=== PATIENT | male | born 1960 | race Caucasian/White ===

== ENCOUNTER 2021-03-14 15:13 | Outpatient (REF) | payer OTHER, SELFPAY ==
[2021-03-14 16:48] LABS: Erythrocyte Sedimentation Rate 5 MM/HR (0-15)
[2021-03-14 16:49] LABS: Syphilis Screen Nonreactive (Nonreactive)
[2021-03-15 09:22] LABS: Lyme Abs Screen <0.90 index
[2021-03-15 13:26] LABS: Anti Nuclear Antibody Screen NEGATIVE (NEGATIVE)
[2021-03-16 18:00] LABS: Myeloperoxidase Antibody <1.0 AI; Proteinase 3 PR3 Antibodies <1.0 AI
== END 2021-03-14 15:14 | disposition home or self-care (01) ==
LOC: HO.LAB 15:13
PROVIDERS: Visit Provider Psychiatry & Neurology Neurology
DX: G93.49 Other encephalopathy (principal)
CPT/HCPCS: 36415; 85652; 86021; 86038; 86039; 86617; 86618; 86780

== ENCOUNTER 2024-10-26 12:40 | Outpatient (RCR) | payer MEDICARE, MEDICAID, SELFPAY | END 2024-10-27 16:26 | disposition hospice, home (50) | LOC: HO.WCC 12:40 | PROVIDERS: PCP Family Medicine; Visit Provider Surgery Surgical Oncology | DX: L89.521 Pressure ulcer of left ankle, stage 1 (principal); I69.354 Hemiplegia and hemiparesis following cerebral infarction affecting left non-dominant side; Z86.718 Personal history of other venous thrombosis and embolism; Z79.01 Long term (current) use of anticoagulants | CPT/HCPCS: 99214 ==